=== PATIENT | male | born 1990 | race Caucasian/White ===

== ENCOUNTER 2017-09-12 15:03 | Emergency (ER) | payer MEDICAID ==
[~2017-09-12] VITALS: Ht 177.8 cm; Wt 84.0 kg
[~2017-09-12 15:03] MED LIST: HALO2TAB PO
[2017-09-12] MEDS ORDERED: KETOROLAC 30 MG/1 ML IM ONE (16:00)
[2017-09-12] MEDS ORDERED: KETOROLAC 30 MG/1 ML ONE (16:31)
[2017-09-12 16:35] VITALS: BP 131/89
== END 2017-09-12 16:50 | disposition home or self-care (01) ==
LOC: ED 16:39
DX: R07.89 Other chest pain (principal)
CPT/HCPCS: 71020; 96372; 99284; J1885

== ENCOUNTER 2018-01-01 10:09 | Emergency (ER) | payer MEDICAID ==
[~2018-01-01] VITALS: Ht 175.3 cm; Wt 79.7 kg
[2018-01-01 10:12] VITALS: BP 141/89
[2018-01-01] MEDS ORDERED: LORazepam 1MG TABLET ONE (10:59)
[2018-01-01] MEDS ORDERED: LORazepam 1MG TABLET PO ONE (11:00)
== END 2018-01-01 11:41 | disposition home or self-care (01) ==
LOC: ED 10:50
DX: F41.1 Generalized anxiety disorder (principal); M19.90 Unspecified osteoarthritis, unspecified site; M10.9 Gout, unspecified
CPT/HCPCS: 99283

== ENCOUNTER 2018-12-18 06:22 | Emergency (ER) | payer SELFPAY ==
[~2018-12-18] VITALS: Ht 177.8 cm; Wt 81.5 kg
[2018-12-18] MEDS ORDERED: HALOPERIDOL 5 MG TABLET ONE (07:42)
[2018-12-18] MEDS ORDERED: HALOPERIDOL 1 MG TABLET PO ONE (08:00)
[2018-12-18] MEDS ORDERED: HALOPERIDOL 5 MG TABLET PO ONE (08:00)
[2018-12-18 08:02] VITALS: BP 133/94
--- NOTE | 2018-12-18 08:15 | NUR ---
pt upright on gurney awake & calmer, responds approp to staff, NAD, no needs at this time, call light within reach.
--- NOTE | 2018-12-18 08:33 | NUR ---
Patient given discharge instructions and Rx, they have confirmed that they understand the instructions. Patient ambulatory with steady gait.
== END 2018-12-18 08:36 | disposition home or self-care (01) ==
LOC: ED 08:30
DX: F41.1 Generalized anxiety disorder (principal); Z76.0 Encounter for issue of repeat prescription; F95.2 Tourette's disorder; R42 Dizziness and giddiness; Z91.14 Patient's other noncompliance with medication regimen
CPT/HCPCS: 93005; 99283; 99284

== ENCOUNTER 2019-02-01 06:58 | Emergency (ER) | payer SELFPAY ==
[~2019-02-01] VITALS: Ht 177.8 cm; Wt 76.7 kg
--- NOTE | 2019-02-01 07:15 | NUR ---
FIRST CONTACT WITH PT. Pt presents to ED with c/o, "I need my Tourette's medicaiton refilled. I haven't been able to sleep in three days. My mind is locked. My mind is tense. My whole body is tense." NADN. Pt provided warm blanket and pt gown. Pt changing into gown at this time. Call light within reach.
[2019-02-01] MEDS ORDERED: LORazepam 1MG TABLET ONE (07:49)
--- NOTE | 2019-02-01 07:52 | NUR ---
Provided medication per EMAR. Pt appreciative. NADN. One bedrail up for safety measures. Pt is on SPO2% monitor. Call light within reach. No needs expressed at this time.
[2019-02-01] MEDS ORDERED: LORazepam 1MG TABLET PO ONE (08:00)
--- NOTE | 2019-02-01 08:10 | NUR ---
Pt provided d/c paperwork, prescription, and work note. Provided pt education verbally and in print in d/c paperwork. Pt stated verbal understanding. Pt changing into clothes. VSS, please see VS charting. NADN. No needs or questions expressed.
[2019-02-01 08:11] VITALS: BP 121/84
--- NOTE | 2019-02-01 08:13 | NUR ---
Pt d/c with steady gait and balance. Pt left with all personal belongings, d/c paperwork, prescription, and work note. NADN. No needs expressed.
== END 2019-02-01 08:23 | disposition home or self-care (01) ==
LOC: ED 08:15
DX: F41.9 Anxiety disorder, unspecified (principal); Z76.0 Encounter for issue of repeat prescription
CPT/HCPCS: 99283

== ENCOUNTER 2019-02-03 18:37 | Emergency (ER) | payer SELFPAY ==
[~2019-02-03] VITALS: Ht 177.8 cm; Wt 77.0 kg
[2019-02-03 18:40] VITALS: BP 126/81
[2019-02-03] MEDS ORDERED: HALOPERIDOL 1 MG TABLET PO ONE ×2 (19:30→20:30)
[2019-02-03] MEDS ORDERED: LORazepam 1MG TABLET PO ONE ×2 (19:30→20:30)
[2019-02-03] MEDS ORDERED: LORazepam 1MG TABLET ONE ×2 (19:33→20:29)
[2019-02-03] MEDS ORDERED: HALOPERIDOL 5 MG TABLET ONE ×2 (19:34→20:29)
[2019-02-03] MEDS ORDERED: HALOPERIDOL 5 MG TABLET PO ONE (20:00)
[2019-02-03 20:13] LABS: BASOPHILS # (AUTO) 0.08 x10^3/uL (0-0.1); BASOPHILS % (AUTO) 1 % (0-1); EOSINOPHILS # (AUTO) 0.12 x10^3/uL (0-0.4); EOSINOPHILS % (AUTO) 2 % (1-7); LYMPHOCYTES # (AUTO) 2.26 x10^3/uL (1-3.4); LYMPHOCYTES % (AUTO) 30 % (22-44); MD NO; MEAN CORPUSCULAR HEMOGLOBIN 30.6 pg (27.5-34.5); MEAN CORPUSCULAR HGB CONC 33.3 g/dL (33.2-36.2); MEAN CORPUSCULAR VOLUME 91.9 fL (81-97); MEAN PLATELET VOLUME 8.1 fL (7.4-10.4); MONOCYTES % (AUTO) 7 % (2-9); NEUTROPHILS # (AUTO) 4.62 x10^3/uL (1.8-6.8); NEUTROPHILS % (AUTO) 61 % (42-75); PLATELET COUNT 401 x10^3/uL (130-400); RED BLOOD COUNT 4.99 x10^6/uL (4.38-5.82); RED CELL DISTRIBUTION WIDTH 14.1 % (9.4-14.8)
[2019-02-03 20:22] LABS: ANION GAP 8 mmol/L (5-15); CALCIUM 8.9 mg/dL (8.5-10.1); CHLORIDE 118 mmol/L (98-107); CREATININE 0.93 mg/dL (0.7-1.3)
== END 2019-02-03 21:13 | disposition home or self-care (01) ==
LOC: ED 20:44
DX: F41.1 Generalized anxiety disorder (principal); E87.0 Hyperosmolality and hypernatremia; Z76.0 Encounter for issue of repeat prescription
CPT/HCPCS: 36415; 80048; 85025; 93005; 99284

== ENCOUNTER 2019-03-31 05:04 | Emergency (ER) | payer OTHER ==
[~2019-03-31] VITALS: Ht 177.8 cm; Wt 73.1 kg
[2019-03-31 05:08] VITALS: BP 113/82
[2019-03-31] MEDS ORDERED: HALOPERIDOL 1 MG TABLET PO ONE (05:44)
--- NOTE | 2019-03-31 05:54 | NUR ---
MED REQUEST SENT TO PHARMACY.
[2019-03-31] MEDS ORDERED: HALOPERIDOL 2 MG/ML ORAL SOL PO ONE (06:00)
== END 2019-03-31 06:15 | disposition home or self-care (01) ==
LOC: ED 05:43
DX: F41.1 Generalized anxiety disorder (principal); F95.2 Tourette's disorder
CPT/HCPCS: 99284

== ENCOUNTER 2019-09-04 10:28 | Emergency (ER) | payer OTHER ==
[~2019-09-04] VITALS: Ht 177.8 cm; Wt 75.1 kg
[2019-09-04 10:30] VITALS: BP 140/86
[2019-09-04] MEDS ORDERED: HYDROcodone/APAP 5/325 TABLET ONE (10:50)
[2019-09-04] MEDS ORDERED: INDOMETHACIN 50 MG CAPSULE ONE (10:51)
[2019-09-04] MEDS ORDERED: INDOMETHACIN 50 MG CAPSULE PO ONE (11:00)
[2019-09-04] MEDS ORDERED: HYDROcodone/APAP 5/325 TABLET PO ONE (11:00)
== END 2019-09-04 11:21 | disposition home or self-care (01) ==
LOC: ED 11:15
DX: M10.071 Idiopathic gout, right ankle and foot (principal)
CPT/HCPCS: 99283

== ENCOUNTER 2019-10-19 15:52 | Emergency (ER) | payer OTHER ==
[~2019-10-19] VITALS: Ht 177.8 cm; Wt 71.3 kg
[2019-10-19 16:33] LABS: BASOPHILS # (AUTO) 0.11 x10^3/uL (0-0.1); BASOPHILS % (AUTO) 1 % (0-1); EOSINOPHILS # (AUTO) 0.02 x10^3/uL (0-0.4); EOSINOPHILS % (AUTO) 0 % (1-7); LYMPHOCYTES % (AUTO) 19 % (22-44); MD NO; MEAN CORPUSCULAR HEMOGLOBIN 30.8 pg (27.5-34.5); MEAN CORPUSCULAR HGB CONC 33.6 g/dL (33.2-36.2); MEAN CORPUSCULAR VOLUME 91.4 fL (81-97); MEAN PLATELET VOLUME 7.9 fL (7.4-10.4); MONOCYTES # (AUTO) 0.55 x10^3/uL (0.2-0.8); MONOCYTES % (AUTO) 6 % (2-9); NEUTROPHILS # (AUTO) 6.67 x10^3/uL (1.8-6.8); NEUTROPHILS % (AUTO) 74 % (42-75); PLATELET COUNT 432 x10^3/uL (130-400); RED BLOOD COUNT 4.92 x10^6/uL (4.38-5.82)
[2019-10-19 16:43] LABS: ALBUMIN 4.4 g/dL (3.4-5.0); ANION GAP 6 mmol/L (5-15); CALCIUM 9.1 mg/dL (8.5-10.1); CHLORIDE 110 mmol/L (98-107)
[2019-10-19 16:44] LABS: CREATININE 1.09 mg/dL (0.7-1.3)
[2019-10-19 19:03] VITALS: BP 140/86
--- NOTE | 2019-10-19 19:33 | NUR ---
pt in room, sitting in chair. Pt does not want to get undressed or have any vitals equipment on at this time. educated on need, pt states that he will reconsider if we find any medical need. denies any further needs or concerns at this time. call light in reach.
== END 2019-10-19 20:50 | disposition home or self-care (01) ==
LOC: ED 19:26
DX: R55 Syncope and collapse (principal); M10.9 Gout, unspecified
CPT/HCPCS: 36415; 70450; 80048; 82040; 85025; 93005; 99284

== ENCOUNTER 2020-10-06 12:33 | Emergency (ER) | payer SELFPAY ==
[~2020-10-06] VITALS: Ht 177.8 cm; Wt 67.0 kg
[2020-10-06 13:25] LABS: BASOPHILS % (AUTO) 1 % (0-1); EOSINOPHILS % (AUTO) 1 % (1-7); LYMPHOCYTES % (AUTO) 22 % (22-44); MEAN CORPUSCULAR HEMOGLOBIN 31.8 pg (27.5-34.5); MEAN CORPUSCULAR HGB CONC 34.2 g/dL (33.2-36.2); MEAN PLATELET VOLUME 7.8 fL (7.4-10.4); MONOCYTES % (AUTO) 6 % (2-9); NEUTROPHILS % (AUTO) 70 % (42-75); PLATELET COUNT 352 x10^3/uL (130-400); RED BLOOD COUNT 4.83 x10^6/uL (4.38-5.82); RED CELL DISTRIBUTION WIDTH 14.1 % (9.4-14.8)
[2020-10-06 13:26] LABS: MD NO
[2020-10-06 13:37] LABS: ALBUMIN 4.4 g/dL (3.4-5.0); CALCIUM 9.4 mg/dL (8.5-10.1); CHLORIDE 112 mmol/L (98-107)
[2020-10-06 13:41] LABS: ALANINE AMINOTRANSFERASE 26 U/L (12-78); ALKALINE PHOSPHATASE 77 U/L (45-117); BILIRUBIN,TOTAL 0.5 mg/dL (0.2-1.0); CREATININE 1.02 mg/dL (0.7-1.3); TOTAL PROTEIN 7.8 g/dL (6.4-8.2)
[2020-10-06 13:46] LABS: ANION GAP 6 mmol/L (5-15)
--- NOTE | 2020-10-06 14:09 | NUR ---
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
[2020-10-06 14:38] VITALS: BP 140/91
== END 2020-10-06 15:32 | disposition home or self-care (01) ==
LOC: ED 14:36
DX: I73.9 Peripheral vascular disease, unspecified (principal); E86.0 Dehydration; R94.31 Abnormal electrocardiogram [ECG] [EKG]; M10.9 Gout, unspecified; Z87.891 Personal history of nicotine dependence
CPT/HCPCS: 36415; 70450; 80053; 85025; 93005; 99285

== ENCOUNTER 2020-12-11 16:06 | Emergency (ER) | payer SELFPAY ==
[~2020-12-11] VITALS: Ht 177.8 cm; Wt 72.0 kg
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
--- NOTE | 2020-12-11 16:26 | NUR ---
Pt denies being on blood thinners.
[2020-12-11] MEDS ORDERED: DIPH,PERTUSS(ACELL),TET VAC/PF 0.5 ML IM-VACC ONE (17:00)
--- NOTE | 2020-12-11 17:10 | NUR ---
Pt back from XR. Denies needs at this time.
--- NOTE | 2020-12-11 18:07 | NUR ---
Pt resting in bed, breathing equal, non-labored.
--- NOTE | 2020-12-11 18:38 | NUR ---
Pt reports he had a tetanus shot less than 2 years ago. Pt agrees with and understands discharge plan and instructions.
[2020-12-11 18:39] VITALS: BP 139/67
--- NOTE | 2020-12-11 18:39 | NUR ---
Tetanus shot was not given as pt reported he had one less than 2 years ago.
== END 2020-12-11 18:41 | disposition home or self-care (01) ==
LOC: ED 18:00
DX: S01.81XA Laceration without foreign body of other part of head, initial encounter (principal); S20.211A Contusion of right front wall of thorax, initial encounter; S60.222A Contusion of left hand, initial encounter; S80.02XA Contusion of left knee, initial encounter; Y08.89XA Assault by other specified means, initial encounter; Y93.89 Activity, other specified; Y92.410 Unspecified street and highway as the place of occurrence of the external cause; Y99.8 Other external cause status
CPT/HCPCS: 99284

== ENCOUNTER 2020-12-23 10:10 | Emergency (ER) | payer SELFPAY ==
[~2020-12-23] VITALS: Ht 177.8 cm; Wt 73.4 kg
[2020-12-23] MEDS ORDERED: DEXAMETHASONE 4 MG TABLET ONE (10:39)
--- NOTE | 2020-12-23 10:47 | NUR ---
Note undone in EDM - 12/23/20 at 1140 by MIRZA 30 YO MALE WITH HISTORY OF LLE DVT, ON [place], COMES IN W/ C/O PAIN AND SWELLING IN L. ANKLE THAT STARTED LAST NIGHT, AND RED SPOTS AND BRUSING ON LLE THAT HAS BEEN GOING ON FOR LAST MONTH.PT STATES LAST THURSDAY HAD INR CHECKED, INR 2.3, AND PT SETTING UP NEW PCP February. PATIENT LAYING IN BED TO COMFORT, HAVING ULTRASOUND OF LLE BY [facility]
[2020-12-23] MEDS ORDERED: DEXAMETHASONE 4 MG TABLET PO ONE (11:00)
--- NOTE | 2020-12-23 11:40 | NUR ---
all charting undo was done on wrong patient
--- NOTE | 2020-12-23 11:42 | NUR ---
Pt ambulatory to bathroom, steady gait. Awaiting CXR read so chart can be put up for recheck. Pt with NADN. All needs met at this time.
[2020-12-23 12:00] VITALS: BP 125/84
== END 2020-12-23 12:02 | disposition home or self-care (01) ==
LOC: ED 10:36
DX: J02.9 Acute pharyngitis, unspecified (principal); Z20.822 Contact with and (suspected) exposure to COVID-19
CPT/HCPCS: 71045; 87081; 87880; 99284; U0003